=== PATIENT | male | born 1975 | race Two or more races ===

== ENCOUNTER 2020-05-27 06:19 | Day surgery (SDC) | payer OTHER | END 2020-05-27 09:50 | disposition home or self-care (01) | LOC: AMB-ENDOS 06:19 | PROVIDERS: ATTEND Surgery | DX: K62.1 Rectal polyp (principal); Z12.11 Encounter for screening for malignant neoplasm of colon; Z20.822 Contact with and (suspected) exposure to COVID-19; K64.0 First degree hemorrhoids ==